=== PATIENT | female | born 1950 | race African-American/Black ===

== ENCOUNTER 2018-11-07 00:55 | Emergency (ER) | payer MEDICARE ==
[~2018-11-07] VITALS: Ht 167.6 cm; Wt 91.0 kg
[2018-11-07] MEDS ORDERED: SODIUM CHLORIDE 0.9% 1,000 ML IV ONE (01:11)
[2018-11-07] MEDS ORDERED: MORPHINE SULFATE 4 MG/ML CPJ (NOT FOR IM USE) IV STA (01:11)
[2018-11-07] MEDS ORDERED: FAMOTIDINE 20MG/2ML VIAL IV STA (01:11)
[2018-11-07] MEDS ORDERED: ONDANSETRON HCL 4MG/2ML INJ IV STA (01:11)
[2018-11-07 01:25] LABS: HEMOGLOBIN. 13.2 g/dL (12.0-16.0); MEAN CORPUSCULAR VOLUME 88.3 fL (81.0-99.0); MEAN PLATELET VOLUME 8.4 fl (7.4-10.4); PLATELET 238 x1000/uL (130-400); RED BLOOD CELL COUNT 4.42 mill/uL (4.2-5.4); RED CELL DISTRIBUTION WIDTH 15.8 % (11.6-14.6)
[2018-11-07 01:32] LABS: CHLORIDE 108 mEq/L (98-107)
[2018-11-07 02:11] LABS: PLATELET ESTIMATE NORMAL
[2018-11-07] MEDS ORDERED: POTASSIUM CHLORIDE INJ 30 MEQ in DEXT 5%/0.9% NACL 1,000 ML IV ONE (03:00)
[2018-11-07 06:29] VITALS: BP 118/67
== END 2018-11-07 06:39 | disposition short-term general hospital (02) ==
LOC: ER 00:55
DX: K80.20 Calculus of gallbladder without cholecystitis without obstruction (principal); R74.8 Abnormal levels of other serum enzymes; K85.90 Acute pancreatitis without necrosis or infection, unspecified; I10 Essential (primary) hypertension; I25.2 Old myocardial infarction; Z86.73 Personal history of transient ischemic attack (TIA), and cerebral infarction without residual deficits; Z88.0 Allergy status to penicillin; Z91.040 Latex allergy status; Z93.1 Gastrostomy status
CPT/HCPCS: 36415; 71045; 74176; 76700; 80053; 83615; 83690; 85025; 93005; 96361; 96365; 96366; 96375; 99285; J2270; J2405; J3480; J3490; J7030; J7042

== ENCOUNTER 2020-08-07 21:31 | Inpatient (IN) | payer MEDICAID, OTHER ==
[~2020-08-07] VITALS: Ht 175.3 cm; Wt 96.6 kg
[2020-08-07] MEDS ORDERED: SODIUM CHLORIDE 0.9% 1,000 ML IV ONE (23:15)
[2020-08-08 00:15] LABS: CHLORIDE 111 mEq/L (98-107)
[2020-08-08 00:18] LABS: BASOPHILS % 0.8 % (0.0-2.0); EOSINOPHILS % 2.8 % (0.0-5.0); HEMATOCRIT. 42.5 % (36.0-48.0); HEMOGLOBIN. 14.2 g/dL (12.0-16.0); LYMPHOCYTES % 42.6 % (20.0-50.0); MEAN CORPUSCULAR HEMOGLOBIN 30.7 pg (28.0-32.0); MEAN CORPUSCULAR VOLUME 91.9 fL (81.0-99.0); MEAN PLATELET VOLUME 9.1 fl (7.4-10.4); MONOCYTES % 7.5 % (2.0-8.0); NEUTROPHILS % 46.3 % (40.0-76.0); PLATELET 220 x1000/uL (130-400); RED BLOOD CELL COUNT 4.62 mill/uL (4.2-5.4); RED CELL DISTRIBUTION WIDTH 14.5 % (11.6-14.6)
[2020-08-08 00:44] LABS: CLARITY URINE TURBID (CLEAR); COLOR URINE YELLOW (YELLOW); KETONES URINE NEGATIVE (NEGATIVE); LEUKOCYTE ESTERASE URINE 2+ (NEGATIVE); NITRITE URINE POSITIVE (NEGATIVE); OCCULT BLOOD URINE 1+ (NEGATIVE); PH URINE 6.5 (4.5-8.0); PROTEIN URINE NEGATIVE (NEGATIVE); SPECIFIC GRAVITY URINE 1.014 (1.005-1.030); UROBILINOGEN URINE 0.2 E.U./dL (0.2-1.0)
[2020-08-08] MEDS ORDERED: LEVOFLOXACIN 750MG PREMIX 150 ML IV NR (02:00)
[2020-08-08] MEDS ORDERED: CLONIDINE 0.1MG TABLET PO PRN (11:15)
[2020-08-08] MEDS ORDERED: ACETAMINOPHEN 325MG TABLET PO PRN ×2 (11:15)
[2020-08-08] MEDS ORDERED: ONDANSETRON HCL 4MG/2ML INJ IV PRN (11:15)
[2020-08-08] MEDS ORDERED: CEFTRIAXONE 1 G PREMIX 50 ML IV SCH (11:15)
[2020-08-08] MEDS ORDERED: DIPHENHYDRAMINE 50MG/ML VIAL IV PRN (11:15)
[2020-08-08] MEDS ORDERED: POTASSIUM CHLORIDE INJ 40 MEQ in DEXT 5% WATER 250 ML IV NR (12:00)
[2020-08-08] MEDS: SODIUM CHLORIDE 0.9% 1,000 ML IV SCH ×2 (12:20→23:35)
[2020-08-08 19:15] VITALS: BP 160/98
[2020-08-08 20:00] VITALS: BP 160/98
[2020-08-08] MEDS ORDERED: GABA-532 PO (22:58)
[2020-08-08] MEDS ORDERED: LEVO100T9 PO (22:58)
[2020-08-08] MEDS ORDERED: ATOR40TA70 PO (22:58)
[2020-08-08] MEDS ORDERED: PANT40TA51 PO (22:58)
[2020-08-08] MEDS ORDERED: TRAZ-251 PO (22:58)
[2020-08-08] MEDS ORDERED: CARV12.545 PO (22:58)
[2020-08-08] MEDS ORDERED: LOSA50TA41 PO (22:58)
[2020-08-08] MEDS ORDERED: AMLO10TA80 PO (22:58)
[2020-08-08] MEDS ORDERED: QUET25TA34 PO (22:58)
[2020-08-08] MEDS ORDERED: *PATIENT'S OWN MEDICATION STORAGE XX SCH (23:15)
[2020-08-09] VITALS: BP 169/85
[2020-08-09] MEDS ORDERED: TEMAZEPAM 15MG CAPSULE PO PRN
[2020-08-09] MEDS: LEVOFLOXACIN 750MG PREMIX 150 ML IV SCH (01:50)
[2020-08-09 04:00] VITALS: BP 160/88
[2020-08-09 06:53] LABS: BASOPHILS % 0.6 % (0.0-2.0); HEMATOCRIT. 42.1 % (36.0-48.0); HEMOGLOBIN. 14.1 g/dL (12.0-16.0); LYMPHOCYTES % 34.5 % (20.0-50.0); MEAN CORPUSCULAR VOLUME 92.4 fL (81.0-99.0); MEAN PLATELET VOLUME 9.7 fl (7.4-10.4); MONOCYTES % 5.6 % (2.0-8.0); NEUTROPHILS % 57.3 % (40.0-76.0); PLATELET 156 x1000/uL (130-400); RED BLOOD CELL COUNT 4.56 mill/uL (4.2-5.4); RED CELL DISTRIBUTION WIDTH 14.2 % (11.6-14.6)
[2020-08-09 06:58] LABS: CHLORIDE 106 mEq/L (98-107)
[2020-08-09] MEDS: LEVOTHYROXINE SODIUM 100MCG TABLET PO SCH (07:04)
[2020-08-09] MEDS: SODIUM CHLORIDE 0.9% 1,000 ML IV SCH ×2 (07:04→16:25)
[2020-08-09 07:10] LABS: PHOSPHORUS 2.4 mg/dL (2.5-4.9)
[2020-08-09 08:24] VITALS: BP 152/91
[2020-08-09] MEDS ORDERED: LOSARTAN POTASSIUM 25 MG TABLET PO SCH (09:00)
[2020-08-09] MEDS: AMLODIPINE 5MG TABLET PO SCH ×2 (09:09→21:10)
[2020-08-09 12:00] VITALS: BP 152/92
[2020-08-09] MEDS ORDERED: POTASSIUM-SODIUM PHOSPHATE POWDER PACKET PO SCH (13:00)
[2020-08-09 16:00] VITALS: BP 150/87
[2020-08-09 20:00] VITALS: BP_SYST 160; BP_SYST 162; BP_DIAS 92
[2020-08-09] MEDS ORDERED: TRAZODONE HCL 50MG TABLET PO SCH (21:00)
[2020-08-09] MEDS: LOSARTAN POTASSIUM 25 MG TABLET PO SCH (21:11)
[2020-08-10] VITALS: BP 166/106
[2020-08-10] MEDS: LEVOFLOXACIN 750MG PREMIX 150 ML IV SCH (01:08)
[2020-08-10] MEDS: SODIUM CHLORIDE 0.9% 1,000 ML IV SCH ×2 (03:20→13:06)
[2020-08-10 04:00] VITALS: BP 151/78
[2020-08-10 06:14] LABS: CHLORIDE 107 mEq/L (98-107)
[2020-08-10 06:21] LABS: PHOSPHORUS 2.7 mg/dL (2.5-4.9)
[2020-08-10] MEDS: LEVOTHYROXINE SODIUM 100MCG TABLET PO SCH (06:27)
[2020-08-10 08:00] VITALS: BP 163/82
[2020-08-10] MEDS: LOSARTAN POTASSIUM 25 MG TABLET PO SCH (08:42)
[2020-08-10] MEDS: AMLODIPINE 5MG TABLET PO SCH (08:42)
[2020-08-10] MEDS ORDERED: MAGNESIUM 2 G PREMIX 50 ML IV NR (11:30)
[2020-08-10 12:00] VITALS: BP 160/83
[2020-08-10 15:30] VITALS: BP 157/73
== END 2020-08-10 17:40 | disposition home or self-care (01) | DRG 720 ==
LOC: ER 21:31 → 5WST 08-08 02:53 → EDBEDREQ 08-08 02:58 → EDBEDREQTM 08-08 02:58 → ENRESERV 08-08 18:10
PROVIDERS: ADMIT Internal Medicine; ATTEND Internal Medicine
DX: A41.9 Sepsis, unspecified organism (principal); I69.354 Hemiplegia and hemiparesis following cerebral infarction affecting left non-dominant side; E83.39 Other disorders of phosphorus metabolism; R16.0 Hepatomegaly, not elsewhere classified; K76.0 Fatty (change of) liver, not elsewhere classified; E83.42 Hypomagnesemia; N28.1 Cyst of kidney, acquired; E11.9 Type 2 diabetes mellitus without complications; E87.6 Hypokalemia; F12.90 Cannabis use, unspecified, uncomplicated; I10 Essential (primary) hypertension; I25.10 Atherosclerotic heart disease of native coronary artery without angina pectoris; J45.909 Unspecified asthma, uncomplicated; K57.30 Diverticulosis of large intestine without perforation or abscess without bleeding; M10.9 Gout, unspecified; N39.0 Urinary tract infection, site not specified; Z83.3 Family history of diabetes mellitus; Z90.49 Acquired absence of other specified parts of digestive tract; Z88.0 Allergy status to penicillin; Z91.040 Latex allergy status
CPT/HCPCS: 36415; 74176; 76700; 80048; 80053; 81003; 83605; 83735; 84100; 85025; 87077; 87186; 93005; 99285; J1200; J1956; J3475; J3480; J7030; J7060